=== PATIENT | female | born 1985 | race Caucasian/White ===

== ENCOUNTER 2018-01-14 01:45 | Outpatient (CLI) | payer OTHER, SELFPAY ==
--- NOTE | 2018-01-14 15:09 | DI.RAD_ITS ---
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 The heart size and pulmonary vasculature are within normal limits. There is a 3.7 cm round opacity in the right lower lobe. Adjacent infiltrate is noted. The lungs are otherwise clear. No other infiltrates or nodules are seen. The heart size and pulmonary vasculature are within normal limits. No effusions or pneumothoraces are identified. The bones appear intact. IMPRESSION: 3.7 cm round opacity in the right lower lobe. This likely reflects the patient's known history of Shraddha's granulomatosis. Other infectious or inflammatory etiologies can not be entirely excluded. CT scan may be considered in this patient for further evaluation.
[2018-01-19 15:58] LABS: c-ANCA Positive 1:256 (Negative); p-ANCA Negative (Negative)
== END 2018-01-14 02:05 ==
PROVIDERS: PCP Internal Medicine; Visit Provider Internal Medicine
DX: M31.30 Wegener's granulomatosis without renal involvement (principal); J98.4 Other disorders of lung
CPT/HCPCS: 36415; 71046; 86255

== ENCOUNTER 2019-09-08 14:03 | Outpatient (REF) | payer OTHER, SELFPAY ==
[2019-09-12 10:39] LABS: Myeloperoxidase Ab IgG <0.2 U; Proteinase 3 Ab (PR3) >8.0 U
== END 2019-09-08 14:23 ==
LOC: NCHCN 14:03
PROVIDERS: PCP Internal Medicine; Visit Provider Internal Medicine
DX: R06.1 Stridor (principal); J39.8 Other specified diseases of upper respiratory tract
CPT/HCPCS: 83516

== ENCOUNTER 2019-11-23 07:11 | Outpatient (CLI) | payer OTHER, SELFPAY ==
[2019-11-24 17:48] LABS: COVID-19 RT-PCR Result NEGATIVE (Negative)
== END 2019-11-23 07:31 ==
PROVIDERS: PCP Internal Medicine; Visit Provider Otolaryngology
DX: Z11.59 Encounter for screening for other viral diseases (principal); Z01.818 Encounter for other preprocedural examination
CPT/HCPCS: U0003

== ENCOUNTER 2019-12-22 04:34 | Outpatient (CLI) | payer OTHER, SELFPAY ==
[2019-12-24 09:19] LABS: SARS-CoV-2 RNA Not Detected (NotDetected); SARS-CoV-2 RNA Source Nasopharynx
== END 2019-12-22 04:54 ==
PROVIDERS: PCP Internal Medicine; Visit Provider Otolaryngology
DX: Z11.59 Encounter for screening for other viral diseases (principal); Z01.818 Encounter for other preprocedural examination
CPT/HCPCS: U0003

== ENCOUNTER 2020-01-23 22:25 | Outpatient (REF) | payer OTHER, SELFPAY ==
[2020-01-25 16:37] LABS: COVID-19 RT-PCR UVMMC Result Negative (Negative)
== END 2020-01-23 22:45 ==
LOC: NCHCN 22:25
PROVIDERS: PCP Internal Medicine; Visit Provider Internal Medicine
DX: Z20.828 Contact with and (suspected) exposure to other viral communicable diseases (principal)
CPT/HCPCS: U0003

== ENCOUNTER 2020-12-16 03:38 | Outpatient (CLI) | payer OTHER, SELFPAY ==
[2020-12-16 10:16] LABS: Source Nasal/Nares
[2020-12-16 13:26] LABS: COVID-19 PCR Negative (Negative)
== END 2020-12-16 03:39 | disposition home or self-care (01) ==
LOC: LBO 03:38
PROVIDERS: PCP Internal Medicine; Visit Provider Otolaryngology
DX: Z20.822 Contact with and (suspected) exposure to COVID-19 (principal); Z01.818 Encounter for other preprocedural examination
CPT/HCPCS: 87635

== ENCOUNTER 2021-04-25 15:03 | Outpatient (REF) | payer OTHER, SELFPAY ==
[2021-04-25 14:46] LABS: Abs Immature Grans 0.03 10^3/uL (0.0-0.06); Absolute Basophil Count 0.08 10^3/uL (0.0-0.2); Absolute Eosinophil Count 0.15 10^3/uL (0.0-0.7); Absolute Lymphocyte Count 2.05 10^3/uL (1.2-3.4); Absolute Monocyte Count 0.73 10^3/uL (0.1-0.8); Absolute Neutrophil Count 3.97 10^3/uL (1.2-6.7); Basophils % 1.1; Eosinophils % 2.1; HCT 42.9 % (36.0-46.0); HGB 13.8 g/dL (11.2-15.7); Immature Grans % 0.4; Lymphocytes % 29.2; MCH 29.4 pg (27.0-33.0); MCHC 32.2 % (32.0-36.0); MCV 91.5 fL (80-95); MPV 11.2 fL (8.0-11.0); Monocytes % 10.4; Neutrophils % 56.8; Nucleated RBC 0 %; Platelet Count 333 10^3/uL (130-400); RBC 4.69 10^6/uL (3.93-5.22); RDW 12.4 % (11.7-14.6); RDW-SD 41.6 fL; WBC 7.01 10^3/uL (4.4-10.8)
[2021-04-25 15:09] LABS: ALT 19 U/L (14-59); AST 10 U/L (15-37); Albumin 4.1 g/dL (3.4-5.0); Alkaline Phosphatase 63 U/L (46-116); Anion Gap 12.2 mmol/L (3-11); BUN 11 mg/dL (7-18); Bilirubin, Total 0.8 mg/dL (0.2-1.0); CO2 22.8 mmol/L (21.0-32.0); CREATININE 0.7 mg/dL (0.55-1.02); Chloride 103 mmol/L (98-107); Glucose 105 mg/dL (74-106); Potassium 4.1 mmol/L (3.5-5.1); Sodium 138 mmol/L (136-145); TSH (W/Ref FT4) 1.75 uIU/mL (0.36-3.74)
[2021-04-25 16:06] LABS: Bilirubin Negative (Negative); Blood Small (Negative); Clarity Cloudy (Clear); Glucose Negative (Negative); Ketones Negative (Negative); Leukocyte Esterase Negative (Negative); Nitrite Positive (Negative); Specific Gravity 1.015 (1.005-1.025); Urobilinogen 0.2 EU/dL (Up TO 0.2)
[2021-04-25 17:15] LABS: Bacteria Many HPF (Negative); C & S Indicated? Yes; Casts Negative LPF (Negative); Crystals Negative HPF (Negative); Epithelial Cells Negative HPF (Negative); Mucus Negative (Negative); Other Cells Negative (Negative); RBC Negative HPF (0-2)
[2021-04-28 14:37] LABS: ANCA Interpretation Positive (Negative)
[2021-04-29 18:08] LABS: Myeloperoxidase Ab IgG <0.2 U ((See Note))
[2021-04-29 18:10] LABS: Proteinase 3 Ab (PR3) >8.0 U ((See Note))
== END 2021-04-25 15:04 | disposition home or self-care (01) ==
LOC: NCHCN 15:03
PROVIDERS: PCP Internal Medicine; Visit Provider Family Medicine
DX: R03.0 Elevated blood-pressure reading, without diagnosis of hypertension (principal); M31.30 Wegener's granulomatosis without renal involvement; R82.998 Other abnormal findings in urine
CPT/HCPCS: 80053; 86255; 87077; 81003; 81015; 83516; 84443; 85025; 87086; 87186

== ENCOUNTER 2021-05-12 20:04 | Outpatient (REF) | payer OTHER, SELFPAY ==
[2021-05-12 17:08] LABS: Anion Gap 10.4 mmol/L (3-11); BUN 12 mg/dL (7-18); CO2 26.6 mmol/L (21.0-32.0); CREATININE 0.7 mg/dL (0.55-1.02); Calcium 9.5 mg/dL (8.5-10.1); Chloride 103 mmol/L (98-107); Glucose 85 mg/dL (74-106); Potassium 4.3 mmol/L (3.5-5.1); Sodium 140 mmol/L (136-145)
== END 2021-05-12 20:05 | disposition home or self-care (01) ==
LOC: NCHCN 20:04
PROVIDERS: PCP Internal Medicine; Visit Provider Family Medicine
DX: R03.0 Elevated blood-pressure reading, without diagnosis of hypertension (principal)
CPT/HCPCS: 80048

== ENCOUNTER 2022-08-07 15:37 | Outpatient (REF) | payer BC, SELFPAY ==
[2022-08-07 16:26] LABS: HCT 42.2 % (36.0-46.0); HGB 13.6 g/dL (11.2-15.7); MCHC 32.2 % (32.0-36.0); MCV 93 fL (80-95); MPV 10.7 fL (8.0-11.0); Platelet Count 314 10^3/uL (130-400); RBC 4.53 10^6/uL (3.93-5.22); RDW 12.9 % (11.7-14.6); RDW-SD 44.1 fL; WBC 7.14 10^3/uL (4.4-10.8)
[2022-08-07 16:44] LABS: ALT 36 U/L (14-59); AST 26 U/L (15-37); Albumin 4.6 g/dL (3.4-5.0); Alkaline Phosphatase 61 U/L (46-116); Anion Gap 8.8 mmol/L (3-11); BUN 13 mg/dL (7-18); CO2 27.2 mmol/L (21.0-32.0); CREATININE 0.8 mg/dL (0.55-1.02); Calcium 9.7 mg/dL (8.5-10.1); Calculated LDL 150 mg/dL (<100); Chloride 104 mmol/L (98-107); Cholesterol 218 mg/dL (<200); Estimated GFR 97.87 (mL/min/1.73m2); Glucose 87 mg/dL (74-106); HDL Cholesterol 56 mg/dL (40-60); Potassium 4.6 mmol/L (3.5-5.1); Sodium 140 mmol/L (136-145); Total Protein 8.4 g/dL (6.4-8.2); Triglyceride 62 mg/dL (<150)
[2022-08-07 20:11] LABS: Bilirubin Negative (Negative); Blood Trace-lysed (Negative); Clarity Clear (Clear); Glucose Negative (Negative); Ketones Negative (Negative); Leukocyte Esterase Trace (Negative); Nitrite Negative (Negative); Urobilinogen 0.2 mg/dL (Up to 0.2); pH 6.5 (5-8)
[2022-08-07 20:13] LABS: Bacteria Moderate HPF (Negative); C & S Indicated? No/Sq. Contamination; Casts Negative LPF (Negative); Crystals Negative HPF (Negative); Epithelial Cells Moderate HPF (Negative); Mucus Negative (Negative)
[2022-08-10 10:37] LABS: Myeloperoxidase Ab IgG <0.2 U; Proteinase 3 Ab (PR3) >8.0 U
== END 2022-08-07 15:38 | disposition home or self-care (01) ==
LOC: NCHCN 15:37
PROVIDERS: PCP Internal Medicine; Visit Provider Nurse Practitioner Family
DX: Z00.00 Encounter for general adult medical examination without abnormal findings (principal); M31.30 Wegener's granulomatosis without renal involvement
CPT/HCPCS: 80053; 80061; 85027; 87077; 81003; 81015; 83516; 87086; 87186

== ENCOUNTER 2022-11-10 14:12 | Outpatient (CLI) | payer BC, SELFPAY ==
[2022-11-10 12:46] LABS: Abs Immature Grans 0.04 10^3/uL (0.0-0.06); Absolute Basophil Count 0.06 10^3/uL (0.0-0.2); Absolute Eosinophil Count 0.04 10^3/uL (0.0-0.7); Absolute Lymphocyte Count 1.71 10^3/uL (1.2-3.4); Absolute Monocyte Count 0.74 10^3/uL (0.1-0.8); Absolute Neutrophil Count 6.34 10^3/uL (1.2-6.7); Basophils % 0.7; Eosinophils % 0.4; HCT 41.8 % (36.0-46.0); HGB 13.6 g/dL (11.2-15.7); Immature Grans % 0.4; Lymphocytes % 19.1; MCHC 32.5 % (32.0-36.0); MCV 92 fL (80-95); MPV 10.4 fL (8.0-11.0); Monocytes % 8.3; Neutrophils % 71.1; Platelet Count 341 10^3/uL (130-400); RBC 4.53 10^6/uL (3.93-5.22); RDW 12.9 % (11.7-14.6); RDW-SD 43.9 fL; WBC 8.93 10^3/uL (4.4-10.8)
[2022-11-10 13:07] LABS: Bilirubin Negative (Negative); Blood Moderate (Negative); Clarity Sl Cloudy (Clear); Glucose Negative (Negative); Ketones Trace mg/dL (Negative); Leukocyte Esterase Small (Negative); Nitrite Negative (Negative); Specific Gravity 1.025 (1.005-1.025); Urobilinogen 0.2 mg/dL (Up to 0.2); pH 5.5 (5-8)
[2022-11-10 13:20] LABS: COMMENT (LAB VIEW ONLY) 165.81 mg/dL; PROTEIN 25.5 mg/dL; Prot/Crea Ur Ratio 0.15
[2022-11-10 13:26] LABS: ALT 36 U/L (14-59); AST 21 U/L (15-37); Albumin 4.2 g/dL (3.4-5.0); Alkaline Phosphatase 59 U/L (46-116); BUN 11 mg/dL (7-18); Bilirubin, Total 0.8 mg/dL (0.2-1.0); C-Reactive Protein 0.19 mg/dL (0.0-0.3); CREATININE 0.8 mg/dL (0.55-1.02); Calcium 9.8 mg/dL (8.5-10.1); Chloride 102 mmol/L (98-107); Estimated GFR 97.87 (mL/min/1.73m2); Glucose 122 mg/dL (74-106); Potassium 3.5 mmol/L (3.5-5.1); Sodium 137 mmol/L (136-145); Total Protein 8.3 g/dL (6.4-8.2)
[2022-11-10 16:28] LABS: ESR (LRH) 7 mm/hr
== END 2022-11-10 14:13 | disposition home or self-care (01) ==
LOC: LBO 14:12
PROVIDERS: PCP Internal Medicine; Visit Provider Internal Medicine
DX: M31.30 Wegener's granulomatosis without renal involvement (principal); Z91.89 Other specified personal risk factors, not elsewhere classified
CPT/HCPCS: 36415; 80053; 85652; 81003; 82565; 84156; 85025; 86140

== ENCOUNTER 2023-04-06 12:51 | Outpatient (CLI) | payer BC, SELFPAY ==
[2023-04-06 12:17] LABS: ESR 2 mm/hr (0-20)
[2023-04-06 12:18] LABS: Abs Immature Grans 0.01 10^3/uL (0.0-0.06); Absolute Basophil Count 0.05 10^3/uL (0.0-0.2); Absolute Eosinophil Count 0.14 10^3/uL (0.0-0.7); Absolute Lymphocyte Count 1.71 10^3/uL (1.2-3.4); Absolute Monocyte Count 0.76 10^3/uL (0.1-0.8); Absolute Neutrophil Count 3.24 10^3/uL (1.2-6.7); Basophils % 0.8; Eosinophils % 2.4; HCT 40.8 % (36.0-46.0); HGB 13.5 g/dL (11.2-15.7); Immature Grans % 0.2; Lymphocytes % 28.9; MCH 30.5 pg (27.0-33.0); MCHC 33.1 % (32.0-36.0); MCV 92 fL (80-95); MPV 10.3 fL (8.0-11.0); Monocytes % 12.9; Neutrophils % 54.8; Platelet Count 337 10^3/uL (130-400); RBC 4.42 10^6/uL (3.93-5.22); RDW 12.6 % (11.7-14.6); RDW-SD 43.2 fL; WBC 5.91 10^3/uL (4.4-10.8)
[2023-04-06 12:20] LABS: Bilirubin Negative (Negative); Blood Negative (Negative); Clarity Clear (Clear); Glucose Negative (Negative); Ketones Negative (Negative); Leukocyte Esterase Trace (Negative); Nitrite Negative (Negative); Specific Gravity 1.015 (1.005-1.025); Urobilinogen 0.2 mg/dL (Up to 0.2)
[2023-04-06 12:32] LABS: Bacteria Many HPF (Negative); C & S Indicated? No; Casts Negative LPF (Negative); Crystals Negative HPF (Negative); Epithelial Cells Rare HPF (Negative); Mucus Negative (Negative); Other Cells Negative (Negative); RBC Negative HPF (0-2)
[2023-04-06 12:34] LABS: Hemoglobin A1C 5.6 % (<5.7)
[2023-04-06 12:55] LABS: COMMENT (LAB VIEW ONLY) 41.84 mg/dL; PROTEIN 8.3 mg/dL; Prot/Crea Ur Ratio 0.19
[2023-04-06 13:08] LABS: TSH (W/Ref FT4) 1.63 uIU/mL (0.36-3.74)
[2023-04-06 13:15] LABS: ALT 22 U/L (14-59); AST 13 U/L (15-37); Albumin 4.2 g/dL (3.4-5.0); Alkaline Phosphatase 56 U/L (46-116); Anion Gap 9.9 mmol/L (3-11); BUN 14 mg/dL (7-18); Bilirubin, Total 0.8 mg/dL (0.2-1.0); CO2 26.1 mmol/L (21.0-32.0); CREATININE 0.8 mg/dL (0.55-1.02); Calcium 9.4 mg/dL (8.5-10.1); Chloride 104 mmol/L (98-107); Estimated GFR 97.26 (mL/min/1.73m2); Glucose 95 mg/dL (74-106); Potassium 4.4 mmol/L (3.5-5.1); Sodium 140 mmol/L (136-145); Total Protein 8.1 g/dL (6.4-8.2)
[2023-04-06 13:16] LABS: C-Reactive Protein < 0.50 mg/dL (<or=0.5)
[2023-04-06 13:22] LABS: Vitamin D 25 Total 30.8 ng/mL (30-100)
== END 2023-04-06 12:52 | disposition home or self-care (01) ==
LOC: LBO 12:59
PROVIDERS: Nurse Practitioner Family; PCP Internal Medicine; Visit Provider Internal Medicine
DX: M31.30 Wegener's granulomatosis without renal involvement (principal); Z91.89 Other specified personal risk factors, not elsewhere classified
CPT/HCPCS: 36415; 80053; 82306; 85652; 81003; 81015; 82565; 83036; 84156; 84443; 85025; 86140

== ENCOUNTER 2023-09-06 12:36 | Outpatient (CLI) | payer BC, SELFPAY ==
[2023-09-06 12:09] LABS: Abs Immature Grans 0.02 10^3/uL (0.0-0.06); Absolute Basophil Count 0.06 10^3/uL (0.0-0.2); Absolute Eosinophil Count 0.14 10^3/uL (0.0-0.7); Absolute Monocyte Count 0.89 10^3/uL (0.1-0.8); Absolute Neutrophil Count 3.67 10^3/uL (1.2-6.7); Basophils % 0.9 %; Eosinophils % 2.2 %; HCT 43.7 % (36.0-46.0); Immature Grans % 0.3 %; Lymphocytes % 25.1 %; MCH 30.2 pg (27.0-33.0); MCV 94 fL (80-95); MPV 9.8 fL (8.0-11.0); Monocytes % 13.9 %; Neutrophils % 57.6 %; Platelet Count 313 10^3/uL (130-400); RBC 4.64 10^6/uL (3.93-5.22); RDW 12.7 % (11.7-14.6); RDW-SD 43.9 fL; WBC 6.38 10^3/uL (4.4-10.8)
[2023-09-06 12:11] LABS: ESR < 1 mm/hr (0-20)
[2023-09-06 12:12] LABS: Bilirubin Negative (Negative); Blood Trace-intact (Negative); Clarity Clear (Clear); Glucose Negative (Negative); Ketones Negative (Negative); Leukocyte Esterase Negative (Negative); Nitrite Negative (Negative); Urobilinogen 0.2 mg/dL (Up to 0.2)
[2023-09-06 12:51] LABS: ALT 25 U/L (14-59); AST 13 U/L (15-37); Albumin 4.3 g/dL (3.4-5.0); Alkaline Phosphatase 52 U/L (46-116); Anion Gap 8.3 mmol/L (3-11); BUN 11 mg/dL (7-18); Bilirubin, Total 1.11 mg/dL (0.2-1.0); CO2 29.7 mmol/L (21.0-32.0); COMMENT (LAB VIEW ONLY) 26.25 mg/dL; CREATININE 0.8 mg/dL (0.55-1.02); Calcium 9.6 mg/dL (8.5-10.1); Chloride 105 mmol/L (98-107); Estimated GFR 97.26 (mL/min/1.73m2); Glucose 98 mg/dL (74-106); Potassium 4.2 mmol/L (3.5-5.1); Sodium 143 mmol/L (136-145); Total Protein 8.1 g/dL (6.4-8.2)
[2023-09-06 12:52] LABS: C-Reactive Protein < 0.50 mg/dL (<or=0.5)
[2023-09-06 12:57] LABS: PROTEIN < 6.0 mg/dL
[2023-09-06 21:11] LABS: Bacteria Negative HPF (Negative); C & S Indicated? No; Casts Negative LPF (Negative); Crystals Negative HPF (Negative); Epithelial Cells Rare HPF (Negative); Mucus Negative (Negative); RBC 0-2 HPF (0-2); WBC Negative HPF (0-5)
== END 2023-09-06 12:37 | disposition home or self-care (01) ==
LOC: LBO 12:36
PROVIDERS: PCP Internal Medicine; Visit Provider Internal Medicine
DX: R31.29 Other microscopic hematuria (principal); Z91.89 Other specified personal risk factors, not elsewhere classified
CPT/HCPCS: 36415; 80053; 85652; 81003; 81015; 82565; 84156; 85025; 86140

== ENCOUNTER 2023-10-27 02:26 | Outpatient (CLI) | payer BC, SELFPAY ==
--- NOTE | 2023-10-27 | DI.MAMMO_ITS ---
Exam(s) MAMMO SCREENING EXAM: MAMMO SCREENING CLINICAL HISTORY: Screening; h/o high risk medication, Z92.29, potentially carcinogenic med. TECHNIQUE: Bilateral full field digital CC and MLO mammographic images were obtained with 3D tomosyn thesis and utilizing computer aided detection (CAD). COMPARISON: None. This is a baseline mammogram on this 38 year old. FINDINGS: Fibroglandular tissue pattern is dense. There are no CAD designations There are no spiculated masses nor malignant appearing microcalcification groups. There is no significant architectural distortion nor skin thickening-retraction. IMPRESSION: No radiographic evidence of malignancy. Dense bilateral fibroglandular tissue . BI-RADS Category 1 - Negative Breast Density - Category C - Heterogeneously dense Breast density Category C or D implies that the patient has dense breast tissue. Dense breast tissue can make it harder to find cancer on a mammogram. Dense breast tissue is also associated with an incr eased risk of breast cancer. This information about the result of the mammogram report was provided to the patient to raise their awareness. Use this report when you speak with the patient about their risks for breast cancer, which includes their family history. At that time, you may recommend additional screening tests (Ultrasoun d or MRI) as these tests may add significant information. A negative radiographic report should not delay biopsy if a dominant or clinically suspicious mass is present. Up to ten percent of cancers are not identified on mammography. A negative report may reinforce clinical impression. Adenosis and dense breasts may obscure an underlying neoplasm. False positive reports average 6 to 10%. Patient will receive a letter notifying them of these results.
== END 2023-10-27 02:46 ==
PROVIDERS: PCP Internal Medicine; Visit Provider Nurse Practitioner Family
DX: Z12.31 Encounter for screening mammogram for malignant neoplasm of breast (principal); Z92.29 Personal history of other drug therapy
CPT/HCPCS: 77063; 77067

== ENCOUNTER 2023-11-23 13:12 | Outpatient (CLI) | payer BC, SELFPAY ==
[2023-11-23 10:40] LABS: Abs Immature Grans 0.03 10^3/uL (0.0-0.06); Absolute Basophil Count 0.04 10^3/uL (0.0-0.2); Absolute Eosinophil Count 0.13 10^3/uL (0.0-0.7); Absolute Lymphocyte Count 1.34 10^3/uL (1.2-3.4); Absolute Monocyte Count 0.66 10^3/uL (0.1-0.8); Absolute Neutrophil Count 4.51 10^3/uL (1.2-6.7); Basophils % 0.6 %; Eosinophils % 1.9 %; HCT 39.3 % (36.0-46.0); HGB 12.7 g/dL (11.2-15.7); Immature Grans % 0.4 %; MCH 30.3 pg (27.0-33.0); MCHC 32.3 % (32.0-36.0); MCV 94 fL (80-95); MPV 9.8 fL (8.0-11.0); Monocytes % 9.8 %; Neutrophils % 67.3 %; Platelet Count 270 10^3/uL (130-400); RBC 4.19 10^6/uL (3.93-5.22); RDW 12.9 % (11.7-14.6); RDW-SD 44.1 fL; WBC 6.71 10^3/uL (4.4-10.8)
[2023-11-23 10:43] LABS: Bilirubin Negative (Negative); Blood Trace-intact (Negative); Clarity Clear (Clear); Glucose Negative (Negative); Ketones Negative (Negative); Leukocyte Esterase Negative (Negative); Nitrite Negative (Negative); Specific Gravity 1.015 (1.005-1.025); Urobilinogen 0.2 mg/dL (Up to 0.2)
[2023-11-23 10:53] LABS: Bacteria Rare HPF (Negative); C & S Indicated? No; Casts Negative LPF (Negative); Crystals Negative HPF (Negative); Epithelial Cells Rare HPF (Negative); Mucus Negative (Negative); WBC 0-2 HPF (0-5)
[2023-11-23 10:56] LABS: ESR 1 mm/hr (0-20)
[2023-11-23 11:13] LABS: ALT 34 U/L (14-59); AST 20 U/L (15-37); Albumin 3.9 g/dL (3.4-5.0); Alkaline Phosphatase 56 U/L (46-116); Anion Gap 9.1 mmol/L (3-11); BUN 10 mg/dL (7-18); Bilirubin, Total 0.91 mg/dL (0.2-1.0); CO2 26.9 mmol/L (21.0-32.0); CREATININE 0.8 mg/dL (0.55-1.02); Calcium 9.2 mg/dL (8.5-10.1); Chloride 106 mmol/L (98-107); Estimated GFR 97.26 (mL/min/1.73m2); Glucose 99 mg/dL (74-106); Potassium 3.7 mmol/L (3.5-5.1); Sodium 142 mmol/L (136-145); Total Protein 7.6 g/dL (6.4-8.2)
[2023-11-23 11:16] LABS: C-Reactive Protein < 0.50 mg/dL (<or=0.5)
[2023-11-23 11:28] LABS: PROTEIN < 6.0 mg/dL
== END 2023-11-23 13:13 | disposition home or self-care (01) ==
LOC: LBO 13:13
PROVIDERS: PCP Internal Medicine; Visit Provider Internal Medicine
DX: R31.29 Other microscopic hematuria (principal); Z91.89 Other specified personal risk factors, not elsewhere classified
CPT/HCPCS: 36415; 80053; 85652; 81003; 81015; 82565; 84156; 85025; 86140

== ENCOUNTER 2024-03-06 15:18 | Outpatient (REF) | payer BC, SELFPAY ==
--- NOTE | 2024-03-06 15:20 | SKI_PTH ---
PATIENT: Elsie Williamson LOC: [facility] U#:[id number] AGE/SX: 39/F ROOM: RE03/06/[address]: Angie Segura : 1985 BED: DIS: 03/06/2024 SPEC #: [id number] RECD: 03/06/24 16:18 STATUS: JASON REQ #: [id number] SABRINA: 03/06/24 15:[address]: Angie Segura DEPT: Surgical Specimen RECD BY: Mayuri Pineda ENTERED: 03/06/24 16:19 SP TYPE: COLT OTHR DR: Rupa Frazier Tissues: 1 - SKIN BIOPSY(SHAVE/PUNCH) Procedures: SKIN LEVEL 4 Comments: [id number]
== END 2024-03-06 15:19 | disposition home or self-care (01) ==
LOC: LBN 15:18
PROVIDERS: PCP Nurse Practitioner Family; Visit Provider Surgery
DX: L72.9 Follicular cyst of the skin and subcutaneous tissue, unspecified (principal); L98.9 Disorder of the skin and subcutaneous tissue, unspecified; L02.415 Cutaneous abscess of right lower limb
CPT/HCPCS: 88305

== ENCOUNTER 2024-04-04 02:36 | Outpatient (CLI) | payer BC, SELFPAY ==
[2024-04-04 12:21] LABS: Abs Immature Grans 0.02 10^3/uL (0.0-0.06); Absolute Basophil Count 0.05 10^3/uL (0.0-0.2); Absolute Eosinophil Count 0.15 10^3/uL (0.0-0.7); Absolute Lymphocyte Count 2.15 10^3/uL (1.2-3.4); Absolute Monocyte Count 0.76 10^3/uL (0.1-0.8); Absolute Neutrophil Count 3.73 10^3/uL (1.2-6.7); Basophils % 0.7 %; ESR 6 mm/hr (0-20); Eosinophils % 2.2 %; HCT 39.5 % (36.0-46.0); HGB 12.8 g/dL (11.2-15.7); Immature Grans % 0.3 %; Lymphocytes % 31.3 %; MCH 29.8 pg (27.0-33.0); MCHC 32.4 % (32.0-36.0); MCV 92 fL (80-95); MPV 9.8 fL (8.0-11.0); Monocytes % 11.1 %; Neutrophils % 54.4 %; Platelet Count 342 10^3/uL (130-400); RBC 4.29 10^6/uL (3.93-5.22); RDW 12.4 % (11.7-14.6); WBC 6.86 10^3/uL (4.4-10.8)
[2024-04-04 12:27] LABS: Bilirubin Negative (Negative); Blood Trace-intact (Negative); Clarity Clear (Clear); Glucose Negative (Negative); Ketones Negative (Negative); Leukocyte Esterase Negative (Negative); Nitrite Negative (Negative); Urobilinogen 0.2 mg/dL (Up to 0.2)
[2024-04-04 12:40] LABS: Bacteria Moderate HPF (Negative); C & S Indicated? No; Casts Negative LPF (Negative); Crystals Negative HPF (Negative); Epithelial Cells Few HPF (Negative); Mucus Negative (Negative); WBC 0-2 HPF (0-5)
[2024-04-04 13:22] LABS: COMMENT (LAB VIEW ONLY) 126.06 mg/dL; PROTEIN 13.6 mg/dL
[2024-04-04 13:59] LABS: ALT 24 U/L (14-59); AST 13 U/L (15-37); Albumin 4.1 g/dL (3.4-5.0); Alkaline Phosphatase 67 U/L (46-116); Anion Gap 5.9 mmol/L (3-11); BUN 14 mg/dL (7-18); Bilirubin, Total 0.72 mg/dL (0.2-1.0); C-Reactive Protein < 0.50 mg/dL (<or=0.5); CO2 30.1 mmol/L (21.0-32.0); CREATININE 0.9 mg/dL (0.55-1.02); Calcium 9.5 mg/dL (8.5-10.1); Chloride 106 mmol/L (98-107); Estimated GFR 83.92 (mL/min/1.73m2); Glucose 97 mg/dL (74-106); Potassium 3.8 mmol/L (3.5-5.1); Sodium 142 mmol/L (136-145); Total Protein 8.1 g/dL (6.4-8.2)
== END 2024-04-04 02:37 | disposition home or self-care (01) ==
PROVIDERS: PCP Nurse Practitioner Family; Visit Provider Internal Medicine
DX: R31.29 Other microscopic hematuria (principal); Z91.89 Other specified personal risk factors, not elsewhere classified
CPT/HCPCS: 36415; 80053; 85652; 81003; 81015; 82565; 84156; 85025; 86140

== ENCOUNTER 2024-07-19 10:12 | Emergency (ER) | payer BC, SELFPAY ==
[2024-07-19] VITALS (37 sets, daily range): BP systolic 105–131; BP diastolic 65–92; PULSE 85–103; RESP 20; TEMP 36.6; O2SAT 95–100
--- NOTE | 2024-07-19 10:30 | RT.EKG_ITS ---
APPROVED REPORT Exam: Resting ECG Reason for Exam: epigastric pain Patient Location: E HR:95 bpm ECG Measurements Heart Rate 95 AXIS ND 156 P 44 QRSd 87 QRS 45 QT 347 T 12 QTc 436 Conclusion Sinus rhythm...normal P axis, V-rate 60- 99
[2024-07-19 11:43] LABS: Bilirubin Negative (Negative); Blood Trace-intact (Negative); Clarity Clear (Clear); Glucose Negative (Negative); Ketones Negative (Negative); Leukocyte Esterase Negative (Negative); Nitrite Negative (Negative); Specific Gravity 1.015 (1.005-1.025); Urobilinogen 0.2 mg/dL (Up to 0.2)
[2024-07-19 11:50] LABS: Bacteria Moderate HPF (Negative); C & S Indicated? No; Casts Negative LPF (Negative); Crystals Negative HPF (Negative); Epithelial Cells Few HPF (Negative); Mucus Negative (Negative); RBC 0-2 HPF (0-2); WBC 0-2 HPF (0-5)
[2024-07-19 11:54] LABS: Abs Immature Grans 0.02 10^3/uL (0.0-0.06); Absolute Basophil Count 0.07 10^3/uL (0.0-0.2); Absolute Eosinophil Count 0.16 10^3/uL (0.0-0.7); Absolute Lymphocyte Count 1.77 10^3/uL (1.2-3.4); Absolute Neutrophil Count 5.96 10^3/uL (1.2-6.7); Basophils % 0.8 %; Eosinophils % 1.7 %; HCT 45.1 % (36.0-46.0); HGB 14.6 g/dL (11.2-15.7); Immature Grans % 0.2 %; Lymphocytes % 19.3 %; MCH 29.6 pg (27.0-33.0); MCHC 32.4 % (32.0-36.0); MCV 91 fL (80-95); MPV 9.6 fL (8.0-11.0); Monocytes % 13.1 %; Neutrophils % 64.9 %; Platelet Count 349 10^3/uL (130-400); RBC 4.94 10^6/uL (3.93-5.22); RDW 13.1 % (11.7-14.6); RDW-SD 43.8 fL; WBC 9.18 10^3/uL (4.4-10.8)
[2024-07-19 12:22] LABS: ALT 36 U/L (14-59); AST 13 U/L (15-37); Albumin 4.7 g/dL (3.4-5.0); Alkaline Phosphatase 67 U/L (46-116); BUN 14 mg/dL (7-18); CREATININE 0.9 mg/dL (0.55-1.02); Calcium 10.9 mg/dL (8.5-10.1); Chloride 102 mmol/L (98-107); Estimated GFR 83.92 (mL/min/1.73m2); Glucose 90 mg/dL (74-106); Lipase 23 U/L (<78); Magnesium 1.7 mg/dL (1.8-2.4); Potassium 4.2 mmol/L (3.5-5.1); Sodium 140 mmol/L (136-145); Total Protein 8.9 g/dL (6.4-8.2)
--- NOTE | 2024-07-19 12:51 | W.ED.GENAD ---
Discharge Plan Disposition Patient Disposition: Home Condition: Good Discharge Details Clinical Impression: Chronic constipation, Abdominal bloating, Abdominal discomfort Primary Care Provider: Rupa Frazier ED Provider: Kathrine Rendon Home Meds and New Rx's Prescriptions: Continued Mirena 21 mcg/24hr (up to 8 yrs) 52 mg intrauterine device 1 device intrauterine ONCE Rx Instructions: as a single dose lisinopril 10 mg tablet 10 mg PO DAILY psyllium Packet 1 packet PO DAILY PRN Rx Instructions: mix into at least 8 oz of water or juice before administering Discharge Instructions Instructions: Abdominal Pain, Adult ED Additional Instructions: As discussed, your labs and imaging are reassuring here today. Please continue with your increased hydration as well as the MiraLAX as previously recommended by general surgery. Please keep a journal of your symptoms and try to know if any foods seem to exacerbate your symptoms. Please call general surgery to schedule follow-up appointment with no prior recommendations. If you develop any fever/chills, increased discomfort please seek care urgently once again. Also try [id number] omeprazole as previously recommended by ENT. To help with cough, could consider the store brands and take as directed on the packaging. Referrals: Rupa Frazier [Primary Care Provider] - Discharge Data Discharge Date/Time-TO BE ENTERED AT DEPARTURE: 07/19/24 15:35 HPI General Date/Time Provider Initiated Documentation: 07/19/24 10:54. Limitations to Documentation: no limitations. Information obtained by: patient, RN notes reviewed and old records reviewed. History of Present Illness 39 year old F presents to the emergency department with the chief complaint of acute on chronic abdominal discomfort, bloating, constipation, described as moderate, with intensity rated at 5. and is localized to the abdomen. Patient reports no radiation. Patient started experiencing this year(s) and it has been intermittent. No relieving factors improve symptom(s), No exacerbating factors reported (unclear, maybe worse at night but unclear habits) . Patient notes loss of appetite; denies chest pain, cough, diaphoresis, fever/chills, malaise, nausea/vomiting, rash and shortness of breath. Patient did receive the following treatments prior to arrival, other (Myralax) Related Data Home Medications ?Medication ?Instructions ?Recorded ?Confirmed levonorgestrel 21 mcg/24 hr (up to 1 device intrauterine ONCE 01/11/24 07/19/24 8 years) 52 mg intrauterine device (Mirena) lisinopril 10 mg tablet 10 mg PO DAILY 01/11/24 07/19/24 psyllium 1 packet PO DAILY PRN 04/27/24 07/19/24 Allergies Allergy/AdvReac Type Severity Reaction Status Date / Time No Known Allergies Allergy Verified 07/19/24 11:24 General Stated Complaint: Abd Prob LOY: 3 Review of Systems Constitutional Constitutional: Reports as per HPI, Denies chills and Denies fever(s) Cardiovascular Cardiovascular: Reports as per HPI, Denies chest pain and Denies dyspnea Respiratory Respiratory: Reports as per HPI, Denies cough and Denies dyspnea Gastrointestinal Gastrointestinal: Reports as per HPI Musculoskeletal Musculoskeletal: Reports as per HPI and Denies back pain Integumentary/Breasts Skin/Breast: Reports as per HPI and Denies rash Neurologic Neurologic: Reports as per HPI Exam Const General: cooperative, healthy appearing, comfortable, no acute distress and well developed Nutritional Appearance: average body habitus and well nourished Orientation: alert and awake [facility] Head: normal to inspection Mouth: moist mucous membranes Resp Effort & Inspection: normal respiratory effort, able to speak in complete sentences and no respiratory distress Auscultation: clear to auscultation bilaterally, no rales, no rhonchi and no wheezes Cardio Rate: regular rate Rhythm: regular rhythm Heart Sounds: S1 normal and S2 normal GI Inspection: normal to inspection Palpation: soft, no hepatosplenomegaly, no aortic enlargement, firm (left side of abdomen), no guarding, no masses, not rigid, tender (left side of abdomen) with no rebound tenderness and No ascites Back/Spine/Pelvis Back: no CVA tenderness Skin General skin exam: no rashes or lesions noted Trauma: no lacerations or abrasions Neuro General: patient alert and patient awake Cognition: normal cognition Speech: speech normal Gait: normal gait Course Vital Signs Vital signs: Vital Signs Temperature 36.6 C 07/19/24 10:37 Pulse 101 H 07/19/24 10:37 Respiratory Rate 07/19/24 10:37 Blood Pressure 127/92 H 07/19/24 10:37 Pulse Oximetry 98 07/19/24 10:37 Temperature 36.6 C 07/19/24 10:37 Pulse 90 07/19/24 11:51 Respiratory Rate 07/19/24 10:37 Blood Pressure 109/68 07/19/24 11:47 Blood Pressure Mean 80 07/19/24 11:47 Blood Pressure Position Sitting 07/19/24 10:37 Pulse Oximetry 98 07/19/24 11:51 Oxygen Delivery Method Room Air 07/19/24 10:37 Oxygen Flow Rate 0 07/19/24 10:37 Pain Level 3 07/19/24 11:04 Lab/Test Results Lab/Test Results: Laboratory Tests Range/Units 07/19/24 07/19/24 11:33 11:45 WBC (4.4-10.8) 10^3/uL 9.18 RBC (3.93-5.22) 10^6/uL 4.94 Hgb (11.2-15.7) g/dL 14.6 Hct (36.0-46.0) % 45.1 MCV (80-95) fL 91 MCH (27.0-33.0) pg 29.6 MCHC (32.0-36.0) % 32.4 RDW (11.7-14.6) % 13.1 Plt Count (130-400) 10^3/uL 349 MPV (8.0-11.0) fL 9.6 Immature Gran % % 0.2 Neutrophils % % 64.9 Lymphocytes % % 19.3 Monocytes % % 13.1 Eosinophils % % 1.7 Basophils % % 0.8 Nucleated RBC % (0.0-0.3) % 0.0 Absolute Neutrophils (1.2-6.7) 10^3/uL 5.96 Absolute Lymphocytes (1.2-3.4) 10^3/uL 1.77 Absolute Monocytes (0.1-0.8) 10^3/uL 1.20 H Absolute Eosinophils (0.0-0.7) 10^3/uL 0.16 Absolute Basophils (0.0-0.2) 10^3/uL 0.07 Sodium (136-145) mmol/L 140 Potassium (3.5-5.1) mmol/L 4.2 Chloride (98-107) mmol/L 102 Carbon Dioxide (21.0-32.0) mmol/L 30.0 Anion Gap (3-11) mmol/L 8.0 BUN (7-18) mg/dL 14 Creatinine (0.55-1.02) mg/dL 0.9 Est GFR (CKD-EPI 2020) (mL/min/1.73m2) 83.92 Glucose (74-106) mg/dL 90 Calcium (8.5-10.1) mg/dL 10.9 H Magnesium (1.8-2.4) mg/dL 1.7 L Total Bilirubin (0.2-1.0) mg/dL 1.0 AST (15-37) U/L 13 L ALT (14-59) U/L 36 Alkaline Phosphatase (46-116) U/L 67 Total Protein (6.4-8.2) g/dL 8.9 H Albumin (3.4-5.0) g/dL 4.7 Lipase (<78) U/L 23 Urine Color (Yellow) Yellow Urine Clarity (Clear) Clear Urine pH (5-8) 7.0 Ur Specific Wallace (1.005-1.025) 1.015 Urine Protein (Neg-Trace) mg/dL Negative Urine Ketones (Negative) mg/dL Negative Urine Blood (Negative) Trace-intact H Urine Nitrite (Negative) Negative Urine Bilirubin (Negative) Negative Urine Urobilinogen (Up to 0.2) mg/dL 0.2 Ur Leukocyte Esterase (Negative) Negative Urine RBC (0-2) HPF 0-2 Urine WBC (0-5) HPF 0-2 Ur Epithelial Cells (Negative) HPF Few Urine Crystals (Negative) HPF Negative Urine Bacteria (Negative) HPF Moderate Urine Casts (Negative) LPF Negative Urine Mucus (Negative) Negative Ur Culture Indicated? No Urine Glucose (Negative) mg/dL Negative POC- Test(urine) Negative Medical Decision Making Patient is a pleasant 39 year old female presenting today with c/c of acute on chronic abdominal discomfort. She states that she has had intermittent discomfort and constant issues with constipation. She has BM about once per wk until being advised, by general surgery a few months ago, to begin using Myralax routinely. She has also increased fiber intake. Despite this, she reports that she has only increased frequency to about twice per wk. She has surgical history of . Has not noted any particular link with food although bloating worse at night. No change in urinary habits, no symptoms of UTI. Denies vaginal discharge. She states that since yesterday, she has had more consistent bloating. Typically, this goes away within a few hours. On exam, patient appears non-toxic, hemodynamically stable. She has tenderness along length of left side of abdomen that feels tense. This could be associated with constipation. She has no guarding, peritoneal findings. She also has epigastric discomfort. Endorses having had heartburn last night, none currently. This was linked with laying down, not associated with exertion. No SOB. No RUQ tenderness, negative Rush's exam. With no link to PO intake, unlikely to be assoicated with GB disease. She has no hx of ETOH consumption but given location, considered pancreatitis and will obtain lipase, baseline labs. No CVA tenderness to suggest pyelonephritis. Given length of symptoms, as well as worsening symptoms, will also obtain imaging. Discussed with patient who agrees. :Labs are reassuring, no acute abnormality. She had slight improvement with Mylanta. Previously, she had been advised to use PPI by her ENT specialist, I encouraged that she consider this recommendation further. CT reviewed by radiologist as well as myself, concerning for constipation. No other acute abnormalities. Discussed with patient. Encouraged supportive care. Encouraged journaling to track her symptoms. Encouraged hdyration and continuing with medical interventions previously advised by general surgery. Advised she call to schedule f/u appointment. I also encouraged that she consider reevaluating her diet as some of her symptoms sound concerning for food intolerance. Return precautions discussed. All of her questions and concerns were addressed, she is in agreement with this plan. 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 Inflammation of RBCs. 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 Surgery to release. Family History Mother Age: 72 No problems noted. Father Myocardial infarction 50 Other Diabetes Heart disease Social History Smoking/Tobacco Use Status: Never Smoking risk assessment performed?: Yes Alcohol Intake: current Alcohol Intake frequency: a few times a month Alcohol type: wine Drug use: Never Substance use type: does not use Housing: house Do you feel safe at home: Yes Do you feel safe in your relationship?: Yes PAWSS Have you Been Recently Intoxicated or Drunk Within the Last 30 days?: No Have you Ever Experienced Previous Episodes of Alcohol Withdrawal?: No Have you ever Experienced Withdrawal Seizures?: No Have you ever Experienced Delirium Tremens(DT)s?: No Have you ever undergone Alcohol Rehabilitation Treatment (i.e, inpt ot outpatient treatment programs)?: No Have you ever Experienced Blackouts?: No Have you ever Combined Alcohol with other Downers within the last 90 days?: No Have you ever Combined Alcohol with any other Substance of Abuse during the last 90 days?: No Positive Blood Alcohol level on Presentation? [PCS.BAL]: No Evidence of Increased Autonomic Activity (i.e. HR>120, tremor, sweating, agitation, nausea)?: No Result: 0
--- NOTE | 2024-07-19 13:00 | DI.CT_ITS ---
Exam(s) CT ABDOMEN PELVIS W EXAM: CT ABDOMEN PELVIS W CLINICAL HISTORY: chronic abdominal pain, firm/tend left side TECHNIQUE: Imaging Protocol: Axial computed tomography images with coronal and sagittal reformatted images were created and reviewed. CONTRAST MATERIAL: Intravenous: Omnipaque 350 Contrast volume:75 mL Oral: No COMPARISON: CR XR CHEST 2V PA LATERAL from 01/14/2018 FINDINGS: ABDOMEN: Lung Bases: There is a persistent opacity in the right lower lobe. The lungs are otherwise clear. Liver: Normal density. No measurable mass. Portal, Superior Mesenteric, and Splenic Veins: Unremarkable. Gallbladder and Biliary Tract: No radiodense calculus or dilation. Pancreas: Normal density, no abnormal calcifications or inflammatory process. Spleen: Normal. Adrenals: No masses seen. Kidneys: Normal size, contour and axis. No radiodense stones or obstructive uropathy. No masses seen. Abdominal Aorta: Abdominal portion non-dilated. Bowel: No obstruction or bowel wall thickening. There is no evidence of appendicitis. There is a lar ge amount of stool seen throughout the colon suggesting constipation. Peritoneal Cavity: No ascites, collection or mesenteric inflammatory response. No free air. Lymph Nodes: Within normal limits. Bones: Within normal limits for the patient's age. Soft Tissues: Unremarkable. PELVIS: Bladder: The urinary bladder is incompletely distended limiting evaluation. No gross abnormalities i dentified. Reproductive Organs: The uterus is retroverted. There is an IUD in good position. Lymph Nodes: Within normal limits. Bones: Within normal limits for the patient's age. IMPRESSION: 1. No acute abdominal or pelvic process. 2. Large amount of stool in the colon suggesting constipation. RADIATION DOSE DELIVERED: 434.59mGy.cm Total DLP DATA REPOSITORY: All CT scans at this facility are submitted to the National Radiology Data Registry (NRDR) Dose Index Registry (DIR) with the [employer] (A[employer]). RADIATION OPTIMIZATION: All CT scans at this facility use at least one of these dose optimization te chniques: automated exposure control; mA and/or kV adjustment per patient size (includes targeted exa ms where dose is matched to clinical indication); or iterative reconstruction.
[2024-07-19] MEDS: Mylanta Suspension 30 ML CUP PO (13:12)
[2024-07-19] MEDS: Normal Saline - Diluent 50 ML VIAL IJ (13:49)
[2024-07-19] MEDS: Omnipaque 350 MG/ML 100 ML BTL 75 ML IJ (13:51)
== END 2024-07-19 15:35 | disposition home or self-care (01) ==
PROVIDERS: Emergency Provider Physician Assistant; PCP Nurse Practitioner Family
DX: K59.00 Constipation, unspecified (principal); R14.0 Abdominal distension (gaseous); R10.13 Epigastric pain
CPT/HCPCS: 36415; 80053; 81025; 83690; 93005; 99285; 74177; 81003; 81015; 83735; 85025; 93010; J3490

== ENCOUNTER 2024-08-24 12:10 | Day surgery (SDC) | payer BC, SELFPAY | END 2024-08-24 12:11 | disposition home or self-care (01) | LOC: SUR 10-04 12:10 | PROVIDERS: PCP Nurse Practitioner Family; Visit Provider Surgery | DX: Z53.9 Procedure and treatment not carried out, unspecified reason (principal) ==

== ENCOUNTER 2024-09-13 02:26 | Outpatient (CLI) | payer BC, SELFPAY ==
[2024-09-13 15:13] LABS: Abs Immature Grans 0.02 10^3/uL (0.0-0.06); HCT 39.4 % (36.0-46.0); HGB 12.9 g/dL (11.2-15.7); Immature Grans % 0.3 %; MCH 29.5 pg (27.0-33.0); MCHC 32.7 % (32.0-36.0); MCV 90 fL (80-95); MPV 9.7 fL (8.0-11.0); Platelet Count 343 10^3/uL (130-400); RBC 4.37 10^6/uL (3.93-5.22); RDW 12.6 % (11.7-14.6); RDW-SD 41.7 fL; WBC 7.78 10^3/uL (4.4-10.8)
[2024-09-13 15:15] LABS: Glucose Negative (Negative)
[2024-09-13 15:30] LABS: C & S Indicated? No
[2024-09-13 16:06] LABS: PROTEIN 11.9 mg/dL; Prot/Crea Ur Ratio 0.10
[2024-09-13 16:10] LABS: ALT 33 U/L (14-59); AST 16 U/L (15-37); Albumin 4.1 g/dL (3.4-5.0); Alkaline Phosphatase 63 U/L (46-116); Anion Gap 5.2 mmol/L (3-11); BUN 12 mg/dL (7-18); Bilirubin, Total 0.8 mg/dL (0.2-1.0); CO2 30.8 mmol/L (21.0-32.0); Calcium 9.1 mg/dL (8.5-10.1); Chloride 103 mmol/L (98-107); Estimated GFR 96.66 (mL/min/1.73m2); Glucose 111 mg/dL (74-106); Potassium 3.6 mmol/L (3.5-5.1); Sodium 139 mmol/L (136-145); Total Protein 7.8 g/dL (6.4-8.2)
== END 2024-09-13 02:27 | disposition home or self-care (01) ==
PROVIDERS: PCP Nurse Practitioner Family; Visit Provider Internal Medicine
DX: M31.30 Wegener's granulomatosis without renal involvement (principal)
CPT/HCPCS: 80053; 81003; 81015; 82565; 84156; 85025

== ENCOUNTER 2024-10-27 02:22 | Outpatient (CLI) | payer BC, SELFPAY ==
--- NOTE | 2024-10-27 | DI.MAMMO_ITS ---
Exam(s) MAMMO SCREENING EXAM: MAMMO SCREENING CLINICAL HISTORY: SCREENING MAMMO Z12.31 HX USE CARCINOGENIC CYTOXAN MED TECHNIQUE: Bilateral full field digital CC and MLO mammographic images were obtained with 3D tomosynthesis and utilizing computer aided detection (CAD). COMPARISON: Comparison is made with prior examinations. FINDINGS: Masses/Architectural Distortion: No suspicious masses or areas of architectural distortion are present. Microcalcifications: No suspicious pleomorphic-type are seen. Skin Thickening/Nipple Retraction: None. IMPRESSION: 1. No significant interval change with no specific features of malignancy noted. 2. Unless there is more urgent need, screening mammography is recommended, as per [place] [employer] guidelines. BI-RADS Category 1 - Negative Breast Density - Category C - The breast are heterogeneously dense, which may obscure small masses. Breast density Category C or D implies that the patient has dense breast tissue. Dense breast tissue can make it harder to find cancer on a mammogram. Dense breast tissue is also associated with an increased risk of breast cancer. This information about the result of the mammogram report was provided to the patient to raise their awareness. Use this report when you speak with the patient about their risks for breast cancer, which includes their family history. At that time, you may recommend additional screening tests (Ultrasound or MRI) as these tests may add significant information. A negative radiographic report should not delay biopsy if a dominant or clinically suspicious mass is present. Up to ten percent of cancers are not identified on mammography. A negative report may reinforce clinical impression. Adenosis and dense breasts may obscure an underlying neoplasm. False positive reports average 6 to 10%. Patient will receive a letter notifying them of these results.
== END 2024-10-27 02:42 ==
LOC: DI 02:22
PROVIDERS: PCP Nurse Practitioner Family; Visit Provider Nurse Practitioner Family
DX: Z12.31 Encounter for screening mammogram for malignant neoplasm of breast (principal)
CPT/HCPCS: 77063; 77067

== ENCOUNTER 2024-12-26 03:33 | Outpatient (CLI) | payer BC, SELFPAY ==
[2024-12-26 08:58] LABS: Abs Immature Grans 0.01 10^3/uL (0.0-0.06); HCT 39.4 % (36.0-46.0); HGB 13.0 g/dL (11.2-15.7); Immature Grans % 0.2 %; MCH 29.6 pg (27.0-33.0); MCHC 33.0 % (32.0-36.0); MCV 90 fL (80-95); MPV 9.6 fL (8.0-11.0); Platelet Count 311 10^3/uL (130-400); RBC 4.39 10^6/uL (3.93-5.22); RDW 12.3 % (11.7-14.6); RDW-SD 40.6 fL; WBC 5.62 10^3/uL (4.4-10.8)
[2024-12-26 09:03] LABS: Glucose Negative (Negative)
[2024-12-26 09:34] LABS: C & S Indicated? No; RBC 0-2 HPF (0-2); WBC 0-2 HPF (0-5)
[2024-12-26 09:35] LABS: ALT 20 U/L (10-49); AST 17 U/L (<34); Albumin 4.7 g/dL (3.4-5.0); Alkaline Phosphatase 52 U/L (46-116); Anion Gap 7.5 mmol/L (3-11); BUN 15 mg/dL (9-23); Bilirubin, Total 0.90 mg/dL (0.2-1.2); CO2 26.5 mmol/L (20.0-31.0); Calcium 9.6 mg/dL (8.3-10.6); Chloride 107 mmol/L (98-107); Glucose 101 mg/dL (74-106); Potassium 4.3 mmol/L (3.5-5.1); Sodium 141 mmol/L (136-145); Total Protein 7.8 g/dL (5.7-8.2)
[2024-12-26 13:48] LABS: Prot/Crea Ur Ratio 0.14 mg/mg Cr
== END 2024-12-26 03:34 | disposition home or self-care (01) ==
PROVIDERS: PCP Nurse Practitioner Family; Visit Provider Internal Medicine
DX: M31.30 Wegener's granulomatosis without renal involvement (principal)
CPT/HCPCS: 36415; 80053; 81003; 81015; 82565; 84156; 85025

== ENCOUNTER 2025-01-12 14:28 | Outpatient (REF) | payer BC, SELFPAY ==
--- NOTE | 2025-01-12 13:30 | PAPFT_PTH ---
PATIENT: Elsie Williamson LOC: [facility] U#:[id number] AGE/SX: 40/F ROOM: RE01/12/[address]: Katalina Saldaña DO : 1985 BED: DIS: 01/12/2025 SPEC #: [id number] RECD: 01/12/25 18:24 STATUS: JASON REQ #: [id number] SABRINA: 01/12/25 13:[address]: Katalina Saldaña DEPT: [facility] Cytology RECD BY: Mayuri Pineda ENTERED: 01/12/25 18:24 SP TYPE: PAPFT OTHR DR: Rupa Frazier Tissues: 1 - CX/ENDOCX FOR PAP SMEARS Procedures: PAP THIN PREP/[facility] Screening HPV DNA PROBE Comments: [id number] (HPV 16 & 18/45)
== END 2025-01-12 14:29 | disposition home or self-care (01) ==
LOC: LBN 14:28
PROVIDERS: PCP Nurse Practitioner Family; Visit Provider Obstetrics & Gynecology
DX: Z12.4 Encounter for screening for malignant neoplasm of cervix (principal)
CPT/HCPCS: 88142; 87624